=== PATIENT | female | born 1995 ===

== ENCOUNTER 2021-02-14 11:06 | Outpatient (CLI) | payer OTHER ==
[2021-02-14 11:47] LABS: Bacteria,Urine 1+ /HPF (Negative); Basophils % (Auto) 0.5 % (0.0-1.8); Bilirubin,Urine NEG (Negative); Blood,Urine NEG (Negative); Color,Urine Yellow (Yellow); Eosinophils # (Auto) 0.1 K/mm3 (0.0-0.4); Eosinophils % (Auto) 1.1 % (0.0-4.3); Hematocrit 38.4 % (30.3-42.9); Lymphocytes # (Auto) 1.8 K/mm3 (1.2-5.4); Mean Corpuscular HGB Conc 34 % (30-34); Mean Corpuscular Volume 83 fl (79-97); Monocytes # (Auto) 0.4 K/mm3 (0.0-0.8); Monocytes % (Auto) 5.5 % (0.0-7.3); Mucus,Urine 1+ /HPF; Platelet Count 279 K/mm3 (140-440); Protein,Urine <15 mg/dL mg/dL (Negative); Red Blood Count 4.62 M/mm3 (3.65-5.03); Red Cell Distribution Width 13.5 % (13.2-15.2); Urobilinogen,Urine < 2.0 mg/dL (<2.0)
[2021-02-14 12:11] LABS: Alanine Aminotransferase 22 units/L (7-56); Albumin 4.6 g/dL (3.9-5); BUN/Creatinine Ratio 18; Blood Urea Nitrogen 9 mg/dL (7-17); Calcium 9.3 mg/dL (8.4-10.2); HDL Cholesterol 54 mg/dL (40-59); Hemolysis Index 3; LDL Cholesterol,Direct 95 mg/dL (50-130)
--- NOTE | 2021-02-14 18:13 | Ultrasound Report ---
ULTRASOUND THYROID INDICATION / CLINICAL INFORMATION: NONTOXIC GOITER,UNSPECIFIED. COMPARISON: None available. FINDINGS: RIGHT LOBE: Size (cm) = 4.1 x 1.2 x 1.6 LEFT LOBE: Size (cm) = 3.9 x 0.9 x 0.7 ISTHMUS: Thickness (cm) = grossly normal APPEARANCE: Normal. SMALL NODULES < 1 cm: None. NODULES >= 1 cm or SUSPICIOUS FEATURES (up to 4): None. LYMPH NODES: No abnormal lymph nodes. PARATHYROID GLANDS: No abnormal parathyroid glands. ADDITIONAL FINDINGS: None. IMPRESSION: 1. No suspicious thyroid nodules. 2. No additional abnormality. ACR TI-RADS Thyroid Nodule Recommendations TI-RADS 1 (0 pts) -- BENIGN. - No Fine Needle Aspirate biopsy (FNA) or follow-up. TI-RADS 2 (1-2 pts) -- NOT SUSPICIOUS. - No FNA or follow-up. TI-RADS 3 (3 pts) -- MILDLY SUSPICIOUS. - >= 2.5 cm: FNA. - 1.5-2.4 cm: Follow up at 1, 3, 5 years. - < 1.5 cm: No follow up. TI-RADS 4 (4-6 pts) -- MODERATELY SUSPICIOUS. - >= 1.5 cm: FNA. - 1.0-1.4 cm: Follow up at 1, 2, 3, 5 years. - < 1.0 cm: No follow up. TI-RADS 5 (7+ pts) -- HIGHLY SUSPICIOUS. - >= 1.0 cm: FNA. - 0.5-0.9 cm: Follow annually for 5 years. - 0.5 cm: No follow up. REFERENCE: ACR Thyroid Imaging, Reporting and Data System (TI-RADS): White Paper of the ACR TI-RADS C ommittee. J AM Melisa Radiol 2017;14:587-595. NOTE: Nodules < 1 cm do not typically require follow-up or FNA unless there are suspicious features. NOTE: Nodule size maximum dimension determines whether a given lesion should be biopsied or followed. NOTE: If multiple nodules meet criteria for FNA, only the two (2) most suspicious nodules should be b iopsied. In addition, FNA of any suspicious cervical nodes should be biopsied. NOTE: Predominantly Cystic nodules and Spongiform nodules, composed predominantly (>50%) of small cys tic spaces, are considered benign (TI-RADS 1) regardless of other criteria. Signer Name: Glenn Johnson MD Signed: 02/14/2021 6:09 PM Workstation Name: [id number]
== END 2021-02-14 11:07 | disposition home or self-care (01) ==
LOC: LAB 11:06 → US 11:06
PROVIDERS: ATTEND Internal Medicine
DX: Z13.1 Encounter for screening for diabetes mellitus (principal); Z13.29 Encounter for screening for other suspected endocrine disorder; Z13.220 Encounter for screening for lipoid disorders; E04.9 Nontoxic goiter, unspecified; E55.9 Vitamin D deficiency, unspecified
CPT/HCPCS: 36415; 76536; 80053; 80061; 81001; 82306; 83036; 84443; 85025